=== PATIENT | male | born 1990 | race African-American/Black ===

== ENCOUNTER 2017-08-03 03:33 | Emergency (ER) | payer MEDICAID ==
[~2017-08-03] VITALS: Ht 193 cm; Wt 97.7 kg
[2017-08-03] MEDS ORDERED: ARIP400S3 IM (03:45)
[2017-08-03] MEDS ORDERED: TRAZ-144 PO (03:45)
[2017-08-03] MEDS ORDERED: HYDR50CA10 PO (03:45)
[2017-08-03] MEDS ORDERED: ARIP10TA8 PO ×2 (03:45)
[2017-08-03 04:20] LABS: BASOPHILS % (AUTO) 0.4 % (0.0-2.0); EOSINOPHILS % (AUTO) 3.5 % (1.0-6.0); HEMATOCRIT 44.4 % (41-53); HEMOGLOBIN 15.2 g/dL (13.5-17.5); LYMPHOCYTES # (AUTO) 1.5 K/uL (1.0-4.8); LYMPHOCYTES % (AUTO) 16.8 % (22.0-44.0); MEAN CORPUSCULAR HEMOGLOBIN 30.4 pg (26.0-34.0); MEAN CORPUSCULAR HGB CONC 34.2 G/dL (31.0-37.0); MEAN CORPUSCULAR VOLUME 89 fL (80-100); MONOCYTES # (AUTO) 0.9 K/uL (0.1-1.0); MONOCYTES % (AUTO) 9.6 % (2.0-9.0); NEUTROPHILS # (AUTO) 6.2 K/uL (1.8-7.7); NEUTROPHILS % (AUTO) 69.7 % (40.0-70.0); PLATELET COUNT (AUTO) 309 K/uL (150-450); RED BLOOD CELL COUNT(AUTO) 4.98 MIL/uL (4.50-5.90); RED CELL DISTRIBUTION WIDTH 14.5 % (11.5-14.5)
[2017-08-03 04:27] LABS: ANION GAP 5 mmol/L (8-16); CALCIUM, TOTAL 9.4 mg/dL (8.8-10.5); CARBON DIOXIDE 32 mmol/L (22-29); CHLORIDE 102 mmol/L (98-107); CREATININE 0.92 mg/dL (0.60-1.30); GLOMERULAR FILTR. RATE CALC > 60 mL/min (>60); GLUCOSE,RANDOM 112 mg/dL (70-110); POTASSIUM 4.3 mmol/L (3.5-5.1); SODIUM SERUM 139 mmol/L (136-145); UREA NITROGEN, BLOOD 16 mg/dL (7-18)
[2017-08-03] MEDS ORDERED: QUEtiapine FUMARATE 100 MG TABLET PO ONE (04:30)
[2017-08-03 04:33] LABS: ALANINE AMINOTRANSFERASE 43 U/L (12-78); ALBUMIN 4.1 g/dL (3.4-5.0); ALKALINE PHOSPHATASE 85 U/L (46-116); ASPARTATE AMINOTRANSFERASE 30 U/L (15-37); BILIRUBIN,TOTAL 0.8 mg/dL (0.1-1.0); TOTAL PROTEIN, SERUM 8.5 g/dL (6.4-8.2)
[2017-08-03 04:39] VITALS: BP 136/87
== END 2017-08-03 05:38 | disposition home or self-care (01) ==
LOC: EMS 03:34
DX: G47.00 Insomnia, unspecified (principal); F20.9 Schizophrenia, unspecified; F31.9 Bipolar disorder, unspecified; F41.9 Anxiety disorder, unspecified; F12.90 Cannabis use, unspecified, uncomplicated; Z87.891 Personal history of nicotine dependence
CPT/HCPCS: 36415; 80053; 85025; 99284; G0480

== ENCOUNTER 2017-08-03 23:10 | Inpatient (IN) | payer MEDICAID ==
[~2017-08-03] VITALS: Ht 193 cm; Wt 93.0 kg
[~2017-08-03 23:10] MED LIST: ARIP10TA8 PO; ARIP400S3 IM; HYDR50CA10 PO; TRAZ-144 PO
[2017-08-04 00:50] LABS: BASOPHILS % (AUTO) 0.5 % (0.0-2.0); EOSINOPHILS % (AUTO) 2.3 % (1.0-6.0); HEMATOCRIT 40.3 % (41-53); HEMOGLOBIN 13.9 g/dL (13.5-17.5); LYMPHOCYTES # (AUTO) 1.3 K/uL (1.0-4.8); LYMPHOCYTES % (AUTO) 14.1 % (22.0-44.0); MEAN CORPUSCULAR HEMOGLOBIN 30.4 pg (26.0-34.0); MEAN CORPUSCULAR HGB CONC 34.5 G/dL (31.0-37.0); MEAN CORPUSCULAR VOLUME 88 fL (80-100); MONOCYTES # (AUTO) 0.9 K/uL (0.1-1.0); MONOCYTES % (AUTO) 10.1 % (2.0-9.0); NEUTROPHILS # (AUTO) 6.8 K/uL (1.8-7.7); PLATELET COUNT (AUTO) 293 K/uL (150-450); RED BLOOD CELL COUNT(AUTO) 4.58 MIL/uL (4.50-5.90); RED CELL DISTRIBUTION WIDTH 14.3 % (11.5-14.5)
[2017-08-04 00:59] LABS: ANION GAP 8 mmol/L (8-16); CALCIUM, TOTAL 8.7 mg/dL (8.8-10.5); CARBON DIOXIDE 29 mmol/L (22-29); CHLORIDE 102 mmol/L (98-107); CREATININE 0.83 mg/dL (0.60-1.30); GLOMERULAR FILTR. RATE CALC > 60 mL/min (>60); GLUCOSE,RANDOM 94 mg/dL (70-110); POTASSIUM 3.5 mmol/L (3.5-5.1); SODIUM SERUM 139 mmol/L (136-145); UREA NITROGEN, BLOOD 15 mg/dL (7-18)
[2017-08-04 01:05] LABS: ALANINE AMINOTRANSFERASE 39 U/L (12-78); ALBUMIN 3.7 g/dL (3.4-5.0); ALKALINE PHOSPHATASE 83 U/L (46-116); ASPARTATE AMINOTRANSFERASE 25 U/L (15-37); BILIRUBIN,TOTAL 1.4 mg/dL (0.1-1.0); TOTAL PROTEIN, SERUM 7.6 g/dL (6.4-8.2)
[2017-08-04] MEDS ORDERED: HALOPERIDOL 5 MG TABLET PO PRN (04:30)
[2017-08-04] MEDS ORDERED: ZOLPIDEM TARTRATE 10 MG TABLET PO PRN (04:30)
[2017-08-04 05:16] VITALS: BP 125/61
[2017-08-04 08:05] VITALS: BP 123/84
[2017-08-04] MEDS ORDERED: ARIPiprazole 10 MG TABLET PO SCH (11:00)
[2017-08-04] MEDS: DIVALPROEX SODIUM 500 MG DR TABLET PO SCH ×2 (11:29→20:42)
[2017-08-04] MEDS: LORazepam 2 MG TABLET PO PRN ×2 (13:47→20:43)
[2017-08-04 19:00] VITALS: BP 132/97
[2017-08-04] MEDS ORDERED: CloNIDine HCL 0.1 MG TABLET PO PRN (19:45)
[2017-08-04] MEDS ORDERED: MAG HYDROX/AL HYDROX/SIMETH ES 30 ML SUSPENSION UDCUP PO PRN (19:45)
[2017-08-04] MEDS ORDERED: ACETAMINOPHEN 325 MG TABLET PO PRN (19:45)
[2017-08-04] MEDS ORDERED: LOPERAMIDE HCL 2 MG CAPSULE PO PRN (19:45)
[2017-08-04] MEDS ORDERED: IBUPROFEN 600 MG TABLET PO PRN (19:45)
[2017-08-04] MEDS ORDERED: BENZOCAINE/MENTHOL LOZENGE MM PRN (19:45)
[2017-08-04] MEDS ORDERED: PETROLATUM,WHITE 71 GM JELLY TP PRN (19:45)
[2017-08-04] MEDS ORDERED: ALBUTEROL SULFATE HFA 90 MCG/PUFF 8 GM INHALER IH PRN (19:45)
[2017-08-04] MEDS ORDERED: BACITRACIN 28.4 GM OINTMENT TP PRN (19:45)
[2017-08-04] MEDS ORDERED: MAGNESIUM HYDROXIDE SUSPENSION 30 ML UDCUP PO PRN (19:45)
[2017-08-04] MEDS ORDERED: ONDANSETRON HCL 4 MG TABLET PO PRN (19:45)
[2017-08-04] MEDS: ARIPiprazole 10 MG TABLET PO SCH (20:42)
[2017-08-05 03:42] VITALS: BP 107/75
[2017-08-05 08:08] LABS: CHOL/HDL RATIO 4.4 (4.2-7.3)
[2017-08-05 08:10] VITALS: BP 108/61
[2017-08-05] MEDS: NICOTINE 21 MG/24 HOUR PATCH TD SCH (08:27)
[2017-08-05] MEDS: ARIPiprazole 10 MG TABLET PO SCH ×3 (08:27→21:00)
[2017-08-05] MEDS: DOCUSATE SODIUM 100 MG CAPSULE PO SCH (08:27)
[2017-08-05] MEDS: DIVALPROEX SODIUM 500 MG DR TABLET PO SCH ×3 (08:27→21:00)
[2017-08-05] MEDS ORDERED: DENTURE ADHESIVE 68 GM CREAM DT PRN (09:15)
[2017-08-05 16:26] VITALS: BP 130/77
[2017-08-06 04:29] VITALS: BP 123/80
[2017-08-06 08:06] VITALS: BP 125/86
[2017-08-06] MEDS: NICOTINE 21 MG/24 HOUR PATCH TD SCH (08:37)
[2017-08-06] MEDS: DIVALPROEX SODIUM 500 MG DR TABLET PO SCH ×2 (08:37→20:14)
[2017-08-06] MEDS: ARIPiprazole 10 MG TABLET PO SCH ×2 (09:00→20:17)
[2017-08-06] MEDS: CHOLECALCIFEROL (VIT D3) 1,000 UNITS TABLET PO SCH (09:00)
[2017-08-06] MEDS: DOCUSATE SODIUM 100 MG CAPSULE PO SCH (09:00)
[2017-08-06 16:07] VITALS: BP 123/82
[2017-08-07 06:18] VITALS: BP 116/65
[2017-08-07 08:32] VITALS: BP 123/78
[2017-08-07] MEDS: NICOTINE 21 MG/24 HOUR PATCH TD SCH (08:42)
[2017-08-07] MEDS: CHOLECALCIFEROL (VIT D3) 1,000 UNITS TABLET PO SCH (08:42)
[2017-08-07] MEDS: DOCUSATE SODIUM 100 MG CAPSULE PO SCH ×2 (08:42→08:53)
[2017-08-07] MEDS: DIVALPROEX SODIUM 500 MG DR TABLET PO SCH ×2 (08:42→20:28)
[2017-08-07] MEDS: ARIPiprazole 10 MG TABLET PO SCH ×3 (08:42→21:00)
[2017-08-07 16:20] VITALS: BP 128/78
[2017-08-08 06:19] VITALS: BP 120/82
[2017-08-08 08:15] VITALS: BP 124/79
[2017-08-08] MEDS: DIVALPROEX SODIUM 500 MG DR TABLET PO SCH ×2 (08:28→20:09)
[2017-08-08] MEDS: DOCUSATE SODIUM 100 MG CAPSULE PO SCH (08:28)
[2017-08-08] MEDS: CHOLECALCIFEROL (VIT D3) 1,000 UNITS TABLET PO SCH (08:28)
[2017-08-08] MEDS: ARIPiprazole 10 MG TABLET PO SCH ×2 (08:28→20:13)
[2017-08-08] MEDS: NICOTINE 21 MG/24 HOUR PATCH TD SCH (08:28)
[2017-08-08 16:23] VITALS: BP 119/75
[2017-08-09 05:47] VITALS: BP 110/73
[2017-08-09 08:40] VITALS: BP 121/68
[2017-08-09] MEDS: DIVALPROEX SODIUM 500 MG DR TABLET PO SCH ×2 (08:44→20:04)
[2017-08-09] MEDS: ARIPiprazole 10 MG TABLET PO SCH ×2 (08:48→20:05)
[2017-08-09] MEDS: CHOLECALCIFEROL (VIT D3) 1,000 UNITS TABLET PO SCH (08:48)
[2017-08-09] MEDS: DOCUSATE SODIUM 100 MG CAPSULE PO SCH (08:48)
[2017-08-09] MEDS: NICOTINE 21 MG/24 HOUR PATCH TD SCH (08:49)
[2017-08-09 16:19] VITALS: BP 113/73
[2017-08-09] MEDS ORDERED: DOCUSATE SODIUM 100 MG CAPSULE PO PRN (18:45)
[2017-08-09] MEDS ORDERED: NICOTINE 21 MG/24 HOUR PATCH TD PRN (18:45)
[2017-08-10 00:37] VITALS: BP 112/76
[2017-08-10] MEDS ORDERED: VITAD1000 PO (07:58)
[2017-08-10] MEDS ORDERED: DIVA500T35 PO (07:58)
[2017-08-10 08:39] VITALS: BP 120/78
[2017-08-10] MEDS: DIVALPROEX SODIUM 500 MG DR TABLET PO SCH (08:50)
[2017-08-10] MEDS: ARIPiprazole 10 MG TABLET PO SCH (08:52)
[2017-08-10] MEDS: CHOLECALCIFEROL (VIT D3) 1,000 UNITS TABLET PO SCH (08:52)
[2017-08-11] MEDS ORDERED: ARIPiprazole ER SUSPENSION 400 MG PRE-FILLED DUAL CHAMBER SYRINGE IM SCH (09:00)
== END 2017-08-10 13:15 | disposition home or self-care (01) | DRG 750 ==
LOC: EMS 23:11 → B2S 08-04 03:30 → B3A 08-04 14:30 → B2S 08-05 17:03
PROVIDERS: ADMIT Psychiatry & Neurology Psychiatry; ATTEND Psychiatry & Neurology Psychiatry
DX: F25.0 Schizoaffective disorder, bipolar type (principal); R45.850 Homicidal ideations; R45.851 Suicidal ideations; R45.4 Irritability and anger; F17.210 Nicotine dependence, cigarettes, uncomplicated; E55.9 Vitamin D deficiency, unspecified; F41.9 Anxiety disorder, unspecified; F12.90 Cannabis use, unspecified, uncomplicated; G47.00 Insomnia, unspecified; K59.00 Constipation, unspecified; Z79.899 Other long term (current) drug therapy; Z71.6 Tobacco abuse counseling
CPT/HCPCS: 82306; 99285; G0480; J0401